=== PATIENT | female | born 1955 | race Caucasian/White ===

== ENCOUNTER 2018-07-01 05:40 | Emergency (ER) | payer MEDICARE, OTHER ==
[~2018-07-01] VITALS: Ht 162.6 cm; Wt 68.1 kg
[~2018-07-01 05:40] MED LIST: AMI25T PO; ASPI-1071 PO; BUPR300T54 PO; CARI350T PO; CHOL100024 PO; DOCU100C40 PO; ESOM40CA PO; HYDR-3972 PO; METO25TA6 PO; SYN0.025T PO; TOPI100T18 PO; [UNRECOGNIZED DRUG - CODE] PO
[2018-07-01] MEDS ORDERED: ibuprofen 200mg tablet PO ONE (06:10)
[2018-07-01 06:57] VITALS: BP 148/57
== END 2018-07-01 06:59 | disposition home or self-care (01) ==
LOC: ER 05:41
DX: S52.591A Other fractures of lower end of right radius, initial encounter for closed fracture (principal); S52.611A Displaced fracture of right ulna styloid process, initial encounter for closed fracture; I25.10 Atherosclerotic heart disease of native coronary artery without angina pectoris; Z95.1 Presence of aortocoronary bypass graft; Z98.890 Other specified postprocedural states; Z88.8 Allergy status to other drugs, medicaments and biological substances; Z79.82 Long term (current) use of aspirin; Z79.899 Other long term (current) drug therapy; W19.XXXA Unspecified fall, initial encounter; Y93.01 Activity, walking, marching and hiking; Y92.89 Other specified places as the place of occurrence of the external cause; Y99.9 Unspecified external cause status
CPT/HCPCS: 29125; 73110; 99284

== ENCOUNTER 2023-08-18 21:52 | Emergency (ER) | payer MEDICARE, OTHER ==
[~2023-08-18] VITALS: Ht 162.6 cm; Wt 72.7 kg
[~2023-08-18 21:52] MED LIST changes: -BUPR300T54 PO; +BUPR300T99 PO; +LOP25T PO; -METO25TA6 PO; +TOP100T PO; -TOPI100T18 PO
[2023-08-18 23:21] VITALS: BP 151/72; PULSE 72; RESP 16; TEMP 98.6; O2SAT 99
== END 2023-08-18 23:21 | disposition home or self-care (01) ==
LOC: ER 21:52
DX: G25.0 Essential tremor (principal); Z88.8 Allergy status to other drugs, medicaments and biological substances; Z79.82 Long term (current) use of aspirin; Z79.899 Other long term (current) drug therapy
CPT/HCPCS: 82948; 99283

== ENCOUNTER 2023-11-30 07:03 | Day surgery (SDC) | payer MEDICARE, OTHER ==
[2023-11-25 15:25] LABS: EOSINOPHILS # (AUTO) 0.9 X10'3 (0-0.9); MEAN PLATELET VOLUME 9.1 FL (7.4-10.4); MONOCYTES # (AUTO) 1.2 X10'3 (0-0.9); NEUTROPHILS # (AUTO) 6.6 X10'3 (1.8-7.7); PRE OP HEMOGLOBIN 11.6 g/dL (12.0-16.0)
[2023-11-25 15:27] LABS: BASOPHILS # (AUTO) 0.2 X10'3 (0-0.2); BASOPHILS % (AUTO) 1.4 % (0-1); EOSINOPHILS % (AUTO) 8.2 % (0-6); LYMPHOCYTES # (AUTO) 2.2 X10'3 (1.1-4.8); LYMPHOCYTES % (AUTO) 19.7 % (21-51); MEAN CORPUSCULAR HEMOGLOBIN 28.3 PG (27.0-31.0); MEAN CORPUSCULAR HGB CONC 32.3 g/dL (33.0-36.5); MEAN CORPUSCULAR VOLUME 87.5 FL (78-98); MONOCYTES % (AUTO) 10.8 % (2-12); NEUTROPHILS % (AUTO) 59.9 % (42-75); PRE OP HEMATOCRIT 35.9 % (35.0-45.0); PRE OP PLATELET COUNT 355 X10'3 (140-440); PRE OP WHITE BLOOD COUNT 11.1 10'3 (4.8-10.8); RED CELL DISTRIBUTION WIDTH 17.2 % (11.5-14.5)
[2023-11-25 15:37] LABS: ALBUMIN 3.4 G/DL (3.4-5.0); ALKALINE PHOSPHATASE 121 IU/L (46-116); BLOOD UREA NITROGEN 29 MG/DL (7-18); BUN/CREATININE RATIO 14.9 (10.0-20.0); CALCIUM 8.9 MG/DL (8.5-10.1); CHLORIDE 105 MMOL/L (99-107); CREATININE 1.94 MG/DL (0.40-0.90); PRE OP ALT 31 U/L (30-65); PRE OP ANION GAP 8 (8-16); PRE OP AST 17 U/L (10-37); PRE OP BILIRUB, TOTAL 0.4 MG/DL (0.0-1.0); PRE OP GLUCOSE 110 MG/DL (70-104); PRE OP SODIUM 140 MMOL/L (135-145); TOTAL CARBON DIOXIDE 26.6 MMOL/L (24-32); TOTAL PROTEIN 6.9 G/DL (6.4-8.2); eGFR 26 ML/MIN
[~2023-11-30] VITALS: Ht 162.6 cm; Wt 74.8 kg
[2023-11-30] VITALS (9 sets, daily range): BP systolic 114–169; BP diastolic 58–78; PULSE 57–68; RESP 11–16; TEMP 97.7; O2SAT 92–97
[~2023-11-30 07:03] MED LIST changes: -AMI25T PO; -ASPI-1071 PO; +ATOR40TA PO; -CARI350T PO; -CHOL100024 PO; -DOCU100C40 PO; +DULO60CA65 PO; -ESOM40CA PO; +FENO160T30 PO; -HYDR-3972 PO; -LOP25T PO; +LOSA100T58 PO; +METF-436 PO; -TOP100T PO; -[UNRECOGNIZED DRUG - CODE] PO
[2023-11-30] MEDS: famotidine 20mg tablet PO ONE (08:27)
[2023-11-30] MEDS: normal saline 1000ml 1,000 ML IV SCH (08:27)
[2023-11-30] MEDS: cefazolin 2gm/D5W 100mL 100 ML IV ONE (08:30)
[2023-11-30] MEDS ORDERED: proCHLORperazine 10 MG/2 ml inj IV PRN (09:05)
[2023-11-30] MEDS ORDERED: ondansetron/PF 4mg/2ml inj IV PRN (09:05)
[2023-11-30] MEDS ORDERED: morphine 4 MG/ML inj SYRINge IV PRN (09:05)
[2023-11-30] MEDS ORDERED: morphine 2 MG/ML inj. syringe IV PRN (09:05)
[2023-11-30] MEDS ORDERED: meperidine/PF 25mg/ml syringe IV PRN ×2 (09:05)
[2023-11-30] MEDS ORDERED: fentaNYL/PF 50MCG/1 ML 2ML syringe ONE (10:09)
[2023-11-30] MEDS ORDERED: LIDOcaine 0.5% (5mg/ml) 50ml vial ONE (10:10)
[2023-11-30] MEDS ORDERED: midazolam 1 mg/ML 2ml injection ONE (10:10)
[2023-11-30] MEDS: BUPIVAcaine/PF 2.5mg/ml (0.25%) 10ml vial ONE (10:54)
[2023-11-30] MEDS ORDERED: BUPIVAcaine/PF 2.5mg/ml (0.25%) 10ml vial ONE (11:22)
[2023-11-30] MEDS: meperidine/PF 25mg/ml syringe IV PRN (12:08)
[2023-11-30] MEDS: ringers solution, lacted 1,000 ML IV SCH (12:08)
[2023-11-30] MEDS: HYDROcodone/acetaminophen 5mg/325mg tablet PO ONE (12:15)
== END 2023-11-30 12:42 | disposition home or self-care (01) ==
LOC: PAS 07:03
PROVIDERS: ATTEND Orthopaedic Surgery Hand Surgery
DX: S56.113A Strain of flexor muscle, fascia and tendon of right middle finger at forearm level, initial encounter (principal); S56.011A Strain of flexor muscle, fascia and tendon of right thumb at forearm level, initial encounter; E11.22 Type 2 diabetes mellitus with diabetic chronic kidney disease; N18.4 Chronic kidney disease, stage 4 (severe); I25.119 Atherosclerotic heart disease of native coronary artery with unspecified angina pectoris; E78.5 Hyperlipidemia, unspecified; E89.0 Postprocedural hypothyroidism; G47.33 Obstructive sleep apnea (adult) (pediatric); M81.0 Age-related osteoporosis without current pathological fracture; I25.2 Old myocardial infarction; M19.90 Unspecified osteoarthritis, unspecified site; Z87.891 Personal history of nicotine dependence; Z79.84 Long term (current) use of oral hypoglycemic drugs; Z79.890 Hormone replacement therapy; Z79.891 Long term (current) use of opiate analgesic; Z79.899 Other long term (current) drug therapy; Z90.49 Acquired absence of other specified parts of digestive tract; Z95.1 Presence of aortocoronary bypass graft; Z98.890 Other specified postprocedural states; X58.XXXA Exposure to other specified factors, initial encounter; Y93.89 Activity, other specified; Y92.89 Other specified places as the place of occurrence of the external cause; Y99.8 Other external cause status
CPT/HCPCS: 20680; 80053; 82948; 85025; 93005; J2175; J2250; J3010; J3490; J7030; J7040; J7120; Z7506; Z7508; Z7512; A4215; A4618; A6449; A7000; J0690